=== PATIENT | female | born 1965 | race Caucasian/White ===

== ENCOUNTER → 2017-05-29 | Outpatient (CLI) | payer OTHER ==
[~2017-05-29] MED LIST: GADOBUTROL 10 ML VIAL IVP ONE
== END ==
LOC: FIMAGING 07:58
PROVIDERS: ATTEND Family Medicine
DX: G93.0 Cerebral cysts (principal); R41.3 Other amnesia; R56.9 Unspecified convulsions
CPT/HCPCS: A9585